=== PATIENT | female | born 1990 | race Caucasian/White ===

== ENCOUNTER 2016-07-15 16:15 | Outpatient (CLI) | payer SELFPAY ==
[2016-07-15 17:33] LABS: ABSOLUTE BASOPHILS # (AUTO) 0.1 10^3/uL (0.0-0.2); ABSOLUTE EOSINOPHILS # (AUTO) 0.4 10^3/uL (0.0-0.6); ABSOLUTE LYMPHOCYTES (AUTO) 2.3 10^3/uL (0.5-4.7); ABSOLUTE NEUT (AUTO) 9.5 10^3/uL (1.7-8.2); BASOPHILS % (AUTO) 0.7 % (0-2); EOSINOPHILS % (AUTO) 2.7 % (0-6); HEMATOCRIT 32.4 % (36.0-47.0); HEMOGLOBIN 10.7 g/dL (12.0-15.5); HGB HCT DIFFERENCE -0.3; LYMPHOCYTES % (AUTO) 17.5 % (13-45); MEAN CORPUSCULAR HEMOGLOBIN 29.8 pg (27.0-33.4); MEAN CORPUSCULAR HGB CONC 33.1 g/dL (32.0-36.0); MEAN CORPUSCULAR VOLUME 90 fl (80-97); MONOCYTES % (AUTO) 7.3 % (3-13); SEGMENTED NEUTROPHILS % (AUTO) 71.8 % (42-78); WHITE BLOOD COUNT 13.3 10^3/uL (4.0-10.5)
[2016-07-15 17:38] LABS: AMORPHOUS SEDIMENT,URINE TRACE /HPF; APPEARANCE,URINE CLOUDY; BILIRUBIN,URINE NEGATIVE (NEGATIVE); GLUCOSE, URINE NEGATIVE (NEGATIVE); KETONES,URINE NEGATIVE (NEGATIVE); LEUKOCYTE ESTERASE,URINE LARGE (NEGATIVE); NITRITE,URINE NEGATIVE (NEGATIVE); PROTEIN,URINE NEGATIVE (NEGATIVE); URINE SPECIFIC GRAVITY 1.012; UROBILINOGEN,URINE NEGATIVE mg/dL (<2.0)
[2016-07-15 17:56] LABS: URINE BARBITURATES SCREEN NEGATIVE; URINE METHADONE SCREEN NEGATIVE; URINE OPIATES LOW NEGATIVE; URINE PHENCYCLIDINE SCREEN NEGATIVE
--- NOTE | 2016-07-15 18:01 | L&D Flow Sheet ---
LD Flowsheet Datetime Report Generated by CPN: 07/15/2016 18:00 Datetime: 07/15/2016 17:48 I/O Interventions: Up to BR (Tesha Vitrano, RN) Datetime: 07/15/2016 17:47 Assessment A Monitor Interventions for FHR: Ultrasound Adjusted (Tesha Vitrano, RN) Patient Care Patient Position/Activity: Semi-Fowlers (Tesha Vitrano, RN) Datetime: 07/15/2016 17:46 Patient Care Comments: GC/Chlam endocervical swab collected (Tesha Vitrano, RN) Datetime: 07/15/2016 17:42 NBP Sys/Soraida/Mean (mmHg): 107 (QS system process) : 66 (QS system process) : 81 (QS system process) Pulse: 94 (QS system process) Respirations: 16 (Tesha Vitrano, RN) LaborFlag: Labor (QS system process) Datetime: 07/15/2016 17:35 Assessment A Monitor Interventions for FHR: Ultrasound Adjusted (Tesah Vitrano, RN) Datetime: 07/15/2016 17:33 Assessment A Monitor Interventions for FHR: Ultrasound Adjusted (Tesha Vitrano, RN) Patient Care Patient Position/Activity: Left Lateral; Semi-Fowlers (Tesha Vitrano, RN) Datetime: 07/15/2016 17:19 Assessment A Monitor Interventions for FHR: Ultrasound Adjusted (Tesha Vitrano, RN) Datetime: 07/15/2016 17:17 Patient Care Comments: Labs drawn (Tesha Vitrano, RN) Datetime: 07/15/2016 17:12 Vital Signs Stage of : Labor (Tesha Vitrano, RN) NBP Sys/Soraida/Mean (mmHg): 117 (QS system process) : 77 (QS system process) : 92 (QS system process) Pulse: 114 (QS system process) Respirations: 16 (Tesha Vitrano, RN) Pain Pain Scale: 3 (Tesha Vitrano, RN) Pain Presence: Intermittent (Tesha Vitrano, RN) Pain Type: Sharp (Tesha Vitrano, RN) Pain Location: Abdomen (Annotations: L side) (Tesha Vitrano, RN) Vaginal Exam Membrane Status: Intact (Tesha Vitrano, RN) Vaginal Bleeding: None (Tesha Vitrano, RN) Maternal Assessment Level of Consciousness: Fully Conscious (Tesha Vitrano, RN) DTR's/Clonus: DTRs 2+; No Clonus (Tesha Vitrano, RN) Headache: Denies (Tesha Vitrano, RN) Breath Sounds, Left: Clear and Equal (Tesha Vitrano, RN) Breath Sounds, Right: Clear and Equal (Tesha Vitrano, RN) Nausea/Vomiting: Denies (Tesha Vitrano, RN) RUQ Epigastric Pain: Denies (Tesha Vitrano, RN) LaborFlag: Labor (QS system process) Datetime: 07/15/2016 17:10 Patient Care Patient Position/Activity: Right Tilt; Semi-Fowlers (Tesha Alvarez RN) I/O Interventions: Clear Liquids Given (Tesha Alvarez RN) Teaching Instructional Method: Verbal; Patient Instructed; Family/Support Person Instructed; Verbalized Understanding (Tesha Alvarez RN) Plan of Care: Plan of Care Discussed (Tesha Alvarez RN) Unit Routine: [place] to Room; Call Naranjo; Bed; Unit Personnel; Monitoring; Safety/Fall Risk Prevention; Bathroom Privileges (Tesha Alvarez RN) Communication Communication Comments: Dr. Hill aware of pt presence on unit; reviewed EGA 34.3, , no PNC, pt complaints. Orders received for no PNC labs and to collect GC/Chlam swab. (Tesha Alvarez RN)
[2016-07-15 18:22] LABS: RUBELLA IGG ANTIBODY 2.63 IU/mL
[2016-07-15 18:34] LABS: ADD HIVPANEL? NO; HIV (1 AND 2) ANTIBODY NEGATIVE (NEGATIVE)
[2016-07-15 18:46] LABS: AMNISURE (ROM) NEGATIVE (NEGATIVE)
[2016-07-15] MEDS ORDERED: LIDOCAINE 1% INJ-PF (10 MG/ML) 30 ML SDV INJ ONE (18:59)
[2016-07-15] MEDS ORDERED: CEFTRIAXONE INJ 1000 MG VIAL IM ONE (18:59)
[2016-07-15] MEDS ORDERED: CEFTRIAXONE INJ 1000 MG VIAL ONE (19:01)
[2016-07-15] MEDS ORDERED: LIDOCAINE 1% INJ-PF (10 MG/ML) 30 ML SDV ONE (19:01)
[2016-07-15 19:33] LABS: CHLAM PCR NOT DETECTED (NOT DETECT)
--- NOTE | 2016-07-15 20:01 | L&D Flow Sheet ---
LD Flowsheet Datetime Report Generated by CPN: 07/15/2016 20:00 Datetime: 07/15/2016 19:59 Instructional Method: Verbal; Written; Patient Instructed; Verbalized Understanding (Tesha Vitrano, RN) Datetime: 07/15/2016 19:56 Dilatation (cm): 1.0 (Tesha INGA Alvarez) Effacement (%): 50 (Tesha INGA Alvarez) Station: -3 (Tesha VitranoINGA) Exam by: R. Vitrano, RN (Tesha Vitrano, RN) Datetime: 07/15/2016 19:52 Communication Comments: Reviewed HONORIO results with Dr. Hill. Provider reviewed strip. Orders to repeat SVE and pt may d/c home if cervix unchanged. Diagnosis UTI. (Tesha Vitrano, RN) Datetime: 07/15/2016 19:50 Patient Care Comments: Juice (Tesha Vitrano, RN) Datetime: 07/15/2016 19:49 Monitor Interventions for FHR: Ultrasound Adjusted (Tesha Vitrano, RN) Datetime: 07/15/2016 19:47 NBP Sys/Soraida/Mean (mmHg): 119 (QS system process) : 77 (QS system process) : 93 (QS system process) Pulse: 95 (QS system process) LaborFlag: Labor (QS system process) Datetime: 07/15/2016 19:45 Patient Position/Activity: Left Tilt; High Fowlers (Tesha Vitrano, RN) Patient Care Comments: Pt returned from radiology in stable condition (Tesha Vitrano, RN) Datetime: 07/15/2016 19:10 Patient Care Comments: Pt to radiology for HONORIO (Tesha Vitrano, RN) Datetime: 07/15/2016 19:08 Monitor Interventions for FHR: Ultrasound Adjusted (Tesha Vitrano, RN) Datetime: 07/15/2016 19:07 Medication Comments: Rocephin 1 gm IM R gluteal (Tesha Vitrano, RN) Datetime: 07/15/2016 18:53 Monitor Mode: External; Palpation (Tesha Vitrano, RN) Frequency (min): None (Tesha Vitrano, RN) Resting Tone (Palpate): Relaxed (Tesha Vitrano, RN) Monitor Mode: External US (Tesha Vitrano, RN) FHR Baseline Rate : 150 (Tesha Vitrano, RN) Variability: Moderate 6-25 bpm (Tesha Vitrano, RN) Accelerations: 15X15 (Tesha Vitrano, RN) Decelerations: None (Tesha Vitrano, RN) Datetime: 07/15/2016 18:51 Communication Comments: Reviewed negative Amnisure with Dr. Hill. Orders received for Rocephin 1 gm IM x1 now. (Tesha Vitrano, RN) Datetime: 07/15/2016 18:42 NBP Sys/Soraida/Mean (mmHg): 122 (QS system process) : 77 (QS system process) : 94 (QS system process) Pulse: 98 (QS system process) Respirations: 16 (Tesha Vitrano, RN) LaborFlag: Labor (QS system process) Datetime: 07/15/2016 18:30 Monitor Mode: External; Palpation (Tesha Vitrano, RN) Frequency (min): Occasional (Tesha Vitrano, RN) Quality: Mild (Tesha Vitrano, RN) Duration (sec): 50-90 (Tesha Vitrano, RN) Duration Criteria: Less than Two 120 Second Contractions (Tesha Vitrano, RN) Pattern: Normal: <= 5 Contractions in 10 Minutes (Tesha Vitrano, RN) Resting Tone (Palpate): Relaxed (Tesha Vitrano, RN) Monitor Mode: External US (Tesha Vitrano, RN) FHR Baseline Rate : 150 (Tesha Vitrano, RN) Variability: Moderate 6-25 bpm (Tesha Vitrano, RN) Accelerations: 15X15 (Tesha Vitrano, RN) Decelerations: None (Tesha Vitrano, RN) Datetime: 07/15/2016 18:13 NBP Sys/Sora[place]/Mean (mmHg): 123 (QS system process) : 84 (QS system process) : 100 (QS system process) Pulse: 96 (QS system process) Respirations: 16 (Tesha Vitrano, RN) LaborFlag: Labor (QS system process) Datetime: 07/15/2016 18:11 Communication Comments: Reviewed SVE and pt complaint of leaking with coughing. Orders received to complete Amnisure and send pt for HONORIO. (Tesha Vitrano, RN) Datetime: 07/15/2016 18:10 Patient Position/Activity: Right Tilt; Semi-Fowlers (Tesha Vitrano, RN) Datetime: 07/15/2016 18:09 Monitor Interventions for FHR: Ultrasound Adjusted (Tesha Alvarez RN) Patient Care Comments: Pt states she leaks whenever she coughs (Tesha Vitrano, RN) Datetime: 07/15/2016 18:08 Comments: Tracing maternal d/t pt movement (Tesha Vitrano, RN) Datetime: 07/15/2016 18:07 Dilatation (cm): 1.0 (Tesha Vitrano, RN) Effacement (%): 50 (Tesha Melyano, RN) Station: -2 (Tesha Kim, RN) Exam by: Tristen Alvarez RN (Tesha Vitrano, RN) Datetime: 07/15/2016 18:01 Communication Comments: Dr. Hill on unit, reviewed strip. Report given including nursing assessment, history reported by pt, labs resulted. Orders to complete SVE and send urine for culture. (Tesha Kim RN) Datetime: 07/15/2016 18:00 Monitor Mode: External (Tesha Vitrano, RN) Frequency (min): Irritability (Tesha Vitrano, RN) Resting Tone (Palpate): Relaxed (Tesha Vitrano, RN) Monitor Mode: External US (Tesha Vitrano, RN) FHR Baseline Rate : 150 (Tesha Vitrano, RN) Variability: Moderate 6-25 bpm (Tesha Vitrano, RN) Accelerations: 15X15 (Tesha Vitrano, RN) Decelerations: None (Tesha Vitrano, RN)
--- NOTE | 2016-07-15 20:10 | Non Stress Test Report ---
Non Stress Test Datetime Report Generated by CPN: 07/15/2016 20:10 DEMOGRAPHIC Test Number: 1 EGA NST: 34.3 INDICATION Indication for Study: Ordered by Provider MONITORING Monitor Explained: Monitor Explained; Test Explained; Patient Verbalized Understanding Time on Monitor: 07/15/2016 17:12 Time off Monitor: 07/15/2016 18:40 NST Duration: 88 NST INTERVENTIONS NST Interventions: PO Hydration; Reposition Patient Physician Notified NST: DrKaty Sergio BABY A: [id number] BABY A Movement : Present Contraction Frequency : Occasional FHR Baseline : 150 Accelerations : 15X15 Decelerations : None Variability : Moderate 6-25bpm NST Review: Meets Criteria for Reactive NST NST Review and Verified By : INGA Gomez Results: Reactive NST REPORT Report Trigger: Send Report
== END 2016-07-15 20:10 | disposition home or self-care (01) ==
LOC: LC 16:15
PROVIDERS: ATTEND Student in an Organized Health Care Education/Training Program
PROC: 4A1HXCZ Monitoring of Products of Conception, Cardiac Rate, External Approach (ICD-10-PCS; principal; 2016-07-15)
DX: O23.43 Unspecified infection of urinary tract in pregnancy, third trimester (principal); Z3A.35 35 weeks gestation of pregnancy
CPT/HCPCS: 59025; 84112; 86900; 86901; 36415; 87086; 86850; 85025; 86762; 86592; 81270; 81001; 87340; 86701; 80307; 87491; 87591; 76815; J3490; J0696